=== PATIENT | male | born 1990 | race Caucasian/White ===

== ENCOUNTER 2017-03-27 15:19 | Emergency (ER) | payer OTHER ==
[~2017-03-27] VITALS: Ht 177.8 cm; Wt 109.8 kg
[2017-03-27 18:17] VITALS: BP 118/76
== END 2017-03-27 18:05 | disposition home or self-care (01) ==
LOC: ED 15:19
DX: H10.12 Acute atopic conjunctivitis, left eye (principal)
CPT/HCPCS: J1100; J1200